=== PATIENT | female | born 1990 | race African-American/Black ===

== ENCOUNTER 2016-12-14 04:46 | Emergency (ER) | payer SELFPAY ==
[~2016-12-14] VITALS: Ht 170.2 cm; Wt 100.0 kg
[2016-12-14 04:49] VITALS: TEMP 98
[2016-12-14 05:17] LABS: BASO # 0.1 (0.0-0.2); BASO % 0.6 % (0.0-2.0); EOS # 0.1 (0.0-0.7); GRAN # 5.8 (1.4-6.5); GRAN % 52.4 % (42.2-75.2); HEMATOCRIT 38.6 % (37.0-47.0); HEMOGLOBIN 12.7 g/dl (12.5-16.0); LYMPH # 4.4 (1.2-3.4); LYMPH % 39.5 % (20.0-51.0); MEAN CELL VOLUME 80 fl (80.0-100.0); MEAN CORPUSCULAR HEMOGLOBIN 26 pg (27.0-31.0); MEAN CORPUSCULAR HGB CONC 33 g/dl (33.0-37.0); MEAN PLATELET VOLUME 8.4 fl (7.4-10.4); MONO # 0.7 (0.1-0.6); MONO % 6.1 % (1.7-9.3); PLATELET COUNT 230 K/mm3 (130-400); RED BLOOD COUNT 4.81 M/mm3 (4.10-5.30); WHITE BLOOD COUNT 11.1 K/mm3 (4.8-10.8)
[2016-12-14 05:25] LABS: COLLECTION METHOD CLEAN CATCH
[2016-12-14 05:34] LABS: ADJUSTED CALCIUM 9.1 mg/dL (8.4-10.2); ALBUMIN 4.1 gm/dL (3.5-5.0); BILIRUBIN,TOTAL 0.4 mg/dL (0.0-1.0); C-REACTIVE PROTEIN 0.8 mg/dL (0.0-0.9); CALCIUM 9.2 mg/dL (8.4-10.2); CREATININE, serum 0.9 mg/dL (0.52-1.25); POTASSIUM 3.5 mmol/L (3.4-5.0); TOTAL PROTEIN 7.2 gm/dL (6.4-8.2)
[2016-12-14 05:35] LABS: MUCOUS Present /lpf; PH 5 (5-8); URINE APPEARANCE Hazy; URINE BACTERIA Rare /hpf; URINE BILIRUBIN Negative (NEGATIVE); URINE BLOOD 3+ (NEGATIVE); URINE COLOR Amber; URINE GLUCOSE Negative (NEGATIVE); URINE KETONE Trace (NEGATIVE); URINE LEUKOCYTE ESTERASE Negative (NEGATIVE); URINE PROTEIN(semi-quant) 1+ (NEGATIVE); URINE UROBILINOGEN >=4.0 mg/dL (NEGATIVE)
[2016-12-14 06:13] VITALS: BP 97/56; PULSE 71
== END 2016-12-14 06:16 | disposition home or self-care (01) ==
LOC: COL.ER 04:46
PROVIDERS: Emergency Medicine
DX: K80.50 Calculus of bile duct without cholangitis or cholecystitis without obstruction (principal); Z32.02 Encounter for pregnancy test, result negative
CPT/HCPCS: J1170; J1885; J2405; J7030

== ENCOUNTER → 2016-12-18 | Outpatient (CLI) | payer SELFPAY | LOC: COL.RAD 16:29 | DX: K80.20 Calculus of gallbladder without cholecystitis without obstruction (principal) ==

== ENCOUNTER 2017-01-02 06:28 | Day surgery (SDC) | payer SELFPAY ==
[~2017-01-02] VITALS: Ht 167.6 cm; Wt 102.7 kg
[2017-01-02] MEDS ORDERED: NORCO 325 MG-51 TAB PO (06:45)
[2017-01-02 06:57] VITALS: BP 116/74; PULSE 70; TEMP 97.9
[2017-01-02] MEDS ORDERED: NORCO 325 MG-7.1 TAB PO (09:00)
[2017-01-02 09:45] VITALS: BP 116/70; PULSE 66
[2017-01-02 10:00] VITALS: BP 112/64; PULSE 70
[2017-01-02 10:15] VITALS: BP 114/67; PULSE 75
[2017-01-02 10:30] VITALS: BP 117/65; PULSE 67
[2017-01-02 11:00] VITALS: BP 98/58; PULSE 90; TEMP 97.4
== END 2017-01-02 11:40 | disposition home or self-care (01) ==
LOC: SDCO 06:28
DX: K80.10 Calculus of gallbladder with chronic cholecystitis without obstruction (principal); Z80.0 Family history of malignant neoplasm of digestive organs; Z83.3 Family history of diabetes mellitus
CPT/HCPCS: OP; J1885; J2270; J2405; J2704; J3010; J7120